=== PATIENT | male | born 1965 | race Caucasian/White ===

== ENCOUNTER 2021-02-18 14:06 | Emergency (ER) | payer MEDICARE ==
[~2021-02-18] VITALS: Ht 180.3 cm; Wt 226.8 kg
[2021-02-18] MEDS ORDERED: CASIRIVIMAB/IMDEVIMAB 10 ML in SODIUM CHLORIDE 0.9% 100 ML IV ONE (14:45)
[2021-02-18 16:34] VITALS: BP 137/62
== END 2021-02-18 16:35 | disposition home or self-care (01) ==
LOC: ER 14:45
DX: U07.1 COVID-19 (principal); I10 Essential (primary) hypertension; Z88.5 Allergy status to narcotic agent; Z91.013 Allergy to seafood; E66.01 Morbid (severe) obesity due to excess calories; Z68.44 Body mass index [BMI] 60.0-69.9, adult
CPT/HCPCS: 99282

== ENCOUNTER 2024-09-06 14:37 | Inpatient (IN) | payer MEDICARE ==
[~2024-09-06] VITALS: Ht 175.3 cm; Wt 222.3 kg
[2024-09-06 15:00] VITALS: TEMP 97.9
[2024-09-06 15:26] LABS: BASOPHILS % 0.1 % (0.0-1.0); HEMATOCRIT 47.3 % (38.2-49.6); HEMOGLOBIN 15.9 g/dL (14.0-18.0); LYMPHOCYTES # (AUTO) 0.7 (1.0-3.2); MEAN CORPUSCULAR HGB CONC 33.6 g/dL (31-35); MEAN CORPUSCULAR VOLUME 83.4 fL (81-99); MONOCYTES # (AUTO) 0.6 (0.2-0.8); MONOCYTES % 4.3 % (4.4-11.3); NEUTROPHILS # (AUTO) 13.3 (2.1-6.9); NEUTROPHILS % 90.1 % (38.7-80.0); PLATELET COUNT 233 x10e3/uL (140-360); RED BLOOD COUNT 5.67 x10e6/uL (4.3-5.7); RED CELL DISTRIBUTION WIDTH 13.5 % (11.7-14.4); WHITE BLOOD COUNT 14.72 x10e3/uL (4.8-10.8)
[2024-09-06 15:30] LABS: INR 1.09; PROTHROMBIN TIME 14.8 seconds (11.9-14.5)
[2024-09-06 15:39] LABS: ALBUMIN 3.3 g/dL (3.5-5.0); ALBUMIN/GLOBULIN RATIO 0.8 (0.8-2.0); ANION GAP 16.5 mmol/L (8-16); BILIRUBIN,TOTAL 2.4 mg/dL (0.2-1.2); CREATININE, SERUM 1.03 mg/dL (0.72-1.25); MAGNESIUM 1.6 MG/DL (1.3-2.1); POTASSIUM 3.5 mmol/L (3.5-5.1); TOTAL PROTEIN 7.2 g/dL (6.5-8.1)
[2024-09-06] MEDS: SODIUM CHLORIDE 0.9% 1000ML 1,000 ML IV STA (15:43)
[2024-09-06] MEDS: BUSPIRONE HCL 10 MG TABLET PO SCH (16:00)
[2024-09-06] MEDS: VANCOMYCIN 1.25GM/250 ML (PEG) 250 ML IV ONE (16:16)
[2024-09-06] MEDS: HYDROMORPHONE 2MG/ML IV PRN (16:18)
[2024-09-06] MEDS: ONDANSETRON HCL INJ 2MG/ML 2ML 2 MG/ML VIAL IV PRN (16:19)
[2024-09-06 17:30] VITALS: PULSE 58; RESP 16
[2024-09-06] MEDS: SODIUM CHLORIDE 0.9% 1000ML 1,000 ML IV SCH (18:35)
[2024-09-06] MEDS ORDERED: MONTELUKAST SOD10 MG PO (18:42)
[2024-09-06] MEDS ORDERED: FLUTICASONE PRO16 GM (18:42)
[2024-09-06] MEDS ORDERED: CYCLOBENZAPRINE10 MG PO (18:42)
[2024-09-06] MEDS ORDERED: BUSPIRONE HCL10 MG PO (18:42)
[2024-09-06] MEDS ORDERED: AMLODIPINE BESY10 MG PO (18:42)
[2024-09-06] MEDS ORDERED: METOPROLOL SUCC50 MG PO (18:42)
[2024-09-06] MEDS ORDERED: LISINOPRIL10 MG PO (18:43)
[2024-09-06 18:44] VITALS: BP 182/96; PULSE 72; RESP 20; TEMP 99.5; O2SAT 96
[2024-09-07] VITALS: BP 143/63; PULSE 68; RESP 20; TEMP 99.1; O2SAT 97
[2024-09-07 04:00] VITALS: BP 135/80; PULSE 72; RESP 21; TEMP 98.7; O2SAT 98
[2024-09-07] MEDS: VANCOMYCIN 1.25GM/250 ML (PEG) 250 ML IV SCH (04:47)
[2024-09-07] MEDS ORDERED: HYDROCORTISONE 1% CREAM 30 GM TUBE TOP PRN (06:30)
[2024-09-07 06:51] LABS: BASOPHILS % 0.3 % (0.0-1.0); EOSINOPHILS % 0.2 % (0.0-6.0); HEMATOCRIT 43.3 % (38.2-49.6); HEMOGLOBIN 14.2 g/dL (14.0-18.0); LYMPHOCYTES # (AUTO) 1.5 (1.0-3.2); LYMPHOCYTES % 15.2 % (18.0-39.1); MEAN CORPUSCULAR HEMOGLOBIN 28.2 pg (28-32); MEAN CORPUSCULAR HGB CONC 32.8 g/dL (31-35); MEAN CORPUSCULAR VOLUME 86.1 fL (81-99); MONOCYTES % 10.8 % (4.4-11.3); NEUTROPHILS # (AUTO) 7.1 (2.1-6.9); PLATELET COUNT 187 x10e3/uL (140-360); RED BLOOD COUNT 5.03 x10e6/uL (4.3-5.7); RED CELL DISTRIBUTION WIDTH 13.6 % (11.7-14.4); WHITE BLOOD COUNT 9.67 x10e3/uL (4.8-10.8)
[2024-09-07 07:29] LABS: ALBUMIN/GLOBULIN RATIO 0.9 (0.8-2.0); ANION GAP 13.4 mmol/L (8-16); BILIRUBIN,TOTAL 2.3 mg/dL (0.2-1.2); CALCIUM 8.3 mg/dL (8.4-10.2); CREATININE, SERUM 1.06 mg/dL (0.72-1.25); TOTAL PROTEIN 6.3 g/dL (6.5-8.1)
[2024-09-07 07:32] LABS: POTASSIUM 3.4 mmol/L (3.5-5.1)
[2024-09-07] MEDS: BUSPIRONE HCL 10 MG TABLET PO SCH ×2 (08:14→20:49)
[2024-09-07] MEDS: LISINOPRIL 10 MG TAB PO SCH (08:27)
[2024-09-07] MEDS: METOPROLOL SUCCINATE 50 MG TAB XL PO SCH (08:27)
[2024-09-07] MEDS: AMLODIPINE BESYLATE 10 MG TAB PO SCH (08:27)
[2024-09-07 09:17] VITALS: BP 145/80; PULSE 63; RESP 20; TEMP 98.6; O2SAT 99
[2024-09-07 09:25] VITALS: BP 145/80; PULSE 63; RESP 20; TEMP 98.6; O2SAT 99
[2024-09-07] MEDS: FLUTICASONE PROPIONATE NASAL SPRAY NS SCH (10:46)
[2024-09-07 18:50] VITALS: BP 164/75; PULSE 66; RESP 20; TEMP 99.2; O2SAT 96
[2024-09-07 20:00] VITALS: BP 133/119; PULSE 70; RESP 20; TEMP 99.7; O2SAT 93
[2024-09-07] MEDS: MONTELUKAST SODIUM 10 MG TAB PO SCH (20:49)
[2024-09-08] VITALS (7 sets, daily range): BP systolic 131–159; BP diastolic 63–85; PULSE 55–70; RESP 19–20; TEMP 98–99.3; O2SAT 96–100
[2024-09-08] MEDS: HYDROCORTISONE 1% CREAM 30 GM TUBE TOP SCH (06:59)
[2024-09-09] VITALS (8 sets, daily range): BP systolic 148–176; BP diastolic 62–91; PULSE 63–76; RESP 18–22; TEMP 98–98.9; O2SAT 96–100
[2024-09-10] VITALS (9 sets, daily range): BP systolic 140–179; BP diastolic 76–94; PULSE 66–74; RESP 18–20; TEMP 98.2–99.1; O2SAT 92–97
[2024-09-10 07:40] LABS: BASOPHILS # (AUTO) 0.1 (0.0-0.1); BASOPHILS % 0.9 % (0.0-1.0); EOSINOPHILS # (AUTO) 0.3 (0.0-0.4); EOSINOPHILS % 5.3 % (0.0-6.0); HEMATOCRIT 41.1 % (38.2-49.6); HEMOGLOBIN 13.7 g/dL (14.0-18.0); LYMPHOCYTES # (AUTO) 1.6 (1.0-3.2); LYMPHOCYTES % 30.3 % (18.0-39.1); MEAN CORPUSCULAR HEMOGLOBIN 28.3 pg (28-32); MEAN CORPUSCULAR HGB CONC 33.3 g/dL (31-35); MEAN CORPUSCULAR VOLUME 84.9 fL (81-99); MONOCYTES # (AUTO) 0.6 (0.2-0.8); MONOCYTES % 11.6 % (4.4-11.3); NEUTROPHILS # (AUTO) 2.7 (2.1-6.9); NEUTROPHILS % 51.7 % (38.7-80.0); PLATELET COUNT 196 x10e3/uL (140-360); RED BLOOD COUNT 4.84 x10e6/uL (4.3-5.7); RED CELL DISTRIBUTION WIDTH 13.2 % (11.7-14.4); WHITE BLOOD COUNT 5.28 x10e3/uL (4.8-10.8)
[2024-09-10 08:13] LABS: ALBUMIN 2.5 g/dL (3.5-5.0); ALBUMIN/GLOBULIN RATIO 0.7 (0.8-2.0); ANION GAP 12.3 mmol/L (8-16); BILIRUBIN,TOTAL 1.5 mg/dL (0.2-1.2); CALCIUM 8.4 mg/dL (8.4-10.2); CREATININE, SERUM 0.86 mg/dL (0.72-1.25); TOTAL PROTEIN 6.1 g/dL (6.5-8.1)
[2024-09-10 08:18] LABS: POTASSIUM 3.3 mmol/L (3.5-5.1)
[2024-09-10] MEDS: POTASSIUM CHLORIDE 10MEQ EA PO ONE (15:16)
[2024-09-11] VITALS (7 sets, daily range): BP systolic 145–178; BP diastolic 69–86; PULSE 61–69; RESP 18–20; TEMP 97.6–98.8; O2SAT 96–100
[2024-09-11] MEDS: HYDROMORPHONE HCL 2 MG TAB PO PRN (13:05)
[2024-09-12 03:17] VITALS: BP 168/88; PULSE 61; RESP 18; TEMP 98.3; O2SAT 97
[2024-09-12] MEDS ORDERED: DOXYCYCLINE HY100 MG PO (21:14)
== END 2024-09-12 09:37 | disposition home or self-care (01) | DRG 603 ==
LOC: ER 15:15 → ERHOLD 16:58 → MED/SURG3 18:29
PROVIDERS: ADMIT Internal Medicine; ATTEND Internal Medicine
DX: L03.116 Cellulitis of left lower limb (principal); Z68.45 Body mass index [BMI] 70 or greater, adult; E66.01 Morbid (severe) obesity due to excess calories; E11.621 Type 2 diabetes mellitus with foot ulcer; E11.51 Type 2 diabetes mellitus with diabetic peripheral angiopathy without gangrene; Z79.84 Long term (current) use of oral hypoglycemic drugs; L97.529 Non-pressure chronic ulcer of other part of left foot with unspecified severity; I89.0 Lymphedema, not elsewhere classified; I87.8 Other specified disorders of veins; E87.6 Hypokalemia; I10 Essential (primary) hypertension; S90.111A Contusion of right great toe without damage to nail, initial encounter; X58.XXXA Exposure to other specified factors, initial encounter; F31.9 Bipolar disorder, unspecified; F41.9 Anxiety disorder, unspecified; Z91.013 Allergy to seafood; Z88.5 Allergy status to narcotic agent
CPT/HCPCS: 36415; 71045; 80053; 80202; 83735; 85025; 85610; 85730; 87040; 93005; 93971; 99252; 99285; J1171; J2405; J2543; J7030

== ENCOUNTER 2024-10-24 12:32 | Inpatient (IN) | payer MEDICARE ==
[~2024-10-24] VITALS: Ht 175.3 cm; Wt 222.3 kg
[~2024-10-24 12:32] MED LIST: AMLODIPINE BESY10 MG PO; BUSPIRONE HCL10 MG PO; CYCLOBENZAPRINE10 MG PO; DOXYCYCLINE HY100 MG PO; FLUTICASONE PRO16 GM; LISINOPRIL10 MG PO; METOPROLOL SUCC50 MG PO; MONTELUKAST SOD10 MG PO
[2024-10-24 13:46] LABS: BASOPHILS # (AUTO) 0.1 (0.0-0.1); BASOPHILS % 0.4 % (0.0-1.0); EOSINOPHILS % 0.1 % (0.0-6.0); HEMATOCRIT 48.1 % (38.2-49.6); HEMOGLOBIN 16.3 g/dL (14.0-18.0); LYMPHOCYTES # (AUTO) 0.9 (1.0-3.2); LYMPHOCYTES % 6.6 % (18.0-39.1); MEAN CORPUSCULAR HEMOGLOBIN 28.4 pg (28-32); MEAN CORPUSCULAR HGB CONC 33.9 g/dL (31-35); MEAN CORPUSCULAR VOLUME 83.8 fL (81-99); MONOCYTES # (AUTO) 0.7 (0.2-0.8); MONOCYTES % 5.3 % (4.4-11.3); NEUTROPHILS # (AUTO) 11.6 (2.1-6.9); NEUTROPHILS % 87.3 % (38.7-80.0); PLATELET COUNT 231 x10e3/uL (140-360); RED BLOOD COUNT 5.74 x10e6/uL (4.3-5.7); RED CELL DISTRIBUTION WIDTH 14.1 % (11.7-14.4); WHITE BLOOD COUNT 13.32 x10e3/uL (4.8-10.8)
[2024-10-24 13:51] LABS: INR 1.14; PROTHROMBIN TIME 15.3 seconds (11.9-14.5)
[2024-10-24 13:59] LABS: ALBUMIN 3.4 g/dL (3.5-5.0); ALBUMIN/GLOBULIN RATIO 0.9 (0.8-2.0); ANION GAP 16.5 mmol/L (8-16); BILIRUBIN,TOTAL 1.8 mg/dL (0.2-1.2); CALCIUM 8.8 mg/dL (8.4-10.2); CREATININE, SERUM 1.17 mg/dL (0.72-1.25); POTASSIUM 3.5 mmol/L (3.5-5.1); TOTAL PROTEIN 7.4 g/dL (6.5-8.1)
[2024-10-24 14:28] LABS: CORONAVIRUS COVID-19 AG NEGATIVE (NEGATIVE); INFLUENZA A AG NEGATIVE (NEGATIVE); INFLUENZA B AG NEGATIVE (NEGATIVE)
[2024-10-24] MEDS: ONDANSETRON HCL INJ 2MG/ML 2ML 2 MG/ML VIAL IV STA (15:11)
[2024-10-24] MEDS: VANCOMYCIN HCL 1.25 GM in SODIUM CHLORIDE 0.9% 250ML 250 ML IV SCH (15:11)
[2024-10-24] MEDS: ACETAMINOPHEN 325 MG TAB PO ONE (15:11)
[2024-10-24] MEDS: HYDROMORPHONE 1MG/1ML INJ IV STA (17:06)
[2024-10-24] MEDS: SODIUM CHLORIDE 0.9% 1000ML 1,000 ML IV SCH (17:07)
[2024-10-24 19:34] VITALS: PULSE 64; RESP 17; TEMP 98.7
[2024-10-24 20:55] VITALS: BP 214/203; PULSE 67; RESP 20; TEMP 99.3; O2SAT 97
[2024-10-24 21:30] VITALS: BP 214/203; PULSE 67; RESP 20; TEMP 99.3; O2SAT 97
[2024-10-24] MEDS: ONDANSETRON HCL INJ 2MG/ML 2ML 2 MG/ML VIAL IV PRN (22:42)
[2024-10-24] MEDS: HYDROMORPHONE 1MG/1ML INJ IV PRN (22:43)
[2024-10-25] VITALS (8 sets, daily range): BP systolic 140–201; BP diastolic 60–105; PULSE 64–82; RESP 18–20; TEMP 97.9–100.4; O2SAT 94–98
[2024-10-25] MEDS: VANCOMYCIN HCL 1.25 GM in SODIUM CHLORIDE 0.9% 250ML 250 ML IV SCH (04:46)
[2024-10-25 06:30] LABS: BASOPHILS % 0.3 % (0.0-1.0); EOSINOPHILS % 0.1 % (0.0-6.0); HEMATOCRIT 43.8 % (38.2-49.6); HEMOGLOBIN 14.3 g/dL (14.0-18.0); LYMPHOCYTES # (AUTO) 0.9 (1.0-3.2); LYMPHOCYTES % 11.1 % (18.0-39.1); MEAN CORPUSCULAR HGB CONC 32.6 g/dL (31-35); MEAN CORPUSCULAR VOLUME 85.9 fL (81-99); MONOCYTES # (AUTO) 0.6 (0.2-0.8); NEUTROPHILS # (AUTO) 6.2 (2.1-6.9); NEUTROPHILS % 80.1 % (38.7-80.0); PLATELET COUNT 177 x10e3/uL (140-360); RED CELL DISTRIBUTION WIDTH 14.3 % (11.7-14.4); WHITE BLOOD COUNT 7.77 x10e3/uL (4.8-10.8)
[2024-10-25 06:57] LABS: ALBUMIN 2.7 g/dL (3.5-5.0); ALBUMIN/GLOBULIN RATIO 0.8 (0.8-2.0); ANION GAP 15.8 mmol/L (8-16); BILIRUBIN,TOTAL 1.2 mg/dL (0.2-1.2); CALCIUM 8.4 mg/dL (8.4-10.2); CREATININE, SERUM 1.05 mg/dL (0.72-1.25); POTASSIUM 3.8 mmol/L (3.5-5.1); TOTAL PROTEIN 6.3 g/dL (6.5-8.1)
[2024-10-25] MEDS: CYCLOBENZAPRINE HCL 10 MG TAB PO SCH (08:18)
[2024-10-25] MEDS: BUSPIRONE HCL 10 MG TABLET PO SCH (08:18)
[2024-10-25] MEDS: AMLODIPINE BESYLATE 10 MG TAB PO SCH (08:19)
[2024-10-25] MEDS: METOPROLOL SUCCINATE 50 MG TAB XL PO SCH (08:19)
[2024-10-25] MEDS: LISINOPRIL 10 MG TAB PO SCH (08:20)
[2024-10-25] MEDS: ACETAMINOPHEN 325 MG TAB PO PRN (18:20)
[2024-10-25] MEDS: ENOXAPARIN SOD INJ 40 MG/0.4 ML SYR SC SCH (21:00)
[2024-10-25] MEDS: ZOLPIDEM TARTRATE 5 MG TAB PO PRN (21:56)
[2024-10-26] VITALS (7 sets, daily range): BP systolic 115–166; BP diastolic 72–87; PULSE 60–70; RESP 18–20; TEMP 97.2–99.2; O2SAT 95–100
[2024-10-26] MEDS: HYDROCODONE/APAP 5MG-325MG TAB PO PRN (00:32)
[2024-10-27] VITALS (8 sets, daily range): BP systolic 137–160; BP diastolic 69–104; PULSE 65–71; RESP 17–20; TEMP 97.3–98.6; O2SAT 96–99
[2024-10-27 05:47] LABS: BASOPHILS % 0.8 % (0.0-1.0); EOSINOPHILS # (AUTO) 0.1 (0.0-0.4); EOSINOPHILS % 2.8 % (0.0-6.0); HEMATOCRIT 41.6 % (38.2-49.6); LYMPHOCYTES # (AUTO) 1.6 (1.0-3.2); LYMPHOCYTES % 33.2 % (18.0-39.1); MEAN CORPUSCULAR HEMOGLOBIN 28.2 pg (28-32); MEAN CORPUSCULAR HGB CONC 33.7 g/dL (31-35); MEAN CORPUSCULAR VOLUME 83.9 fL (81-99); MONOCYTES # (AUTO) 0.7 (0.2-0.8); MONOCYTES % 13.4 % (4.4-11.3); NEUTROPHILS # (AUTO) 2.5 (2.1-6.9); NEUTROPHILS % 49.6 % (38.7-80.0); PLATELET COUNT 165 x10e3/uL (140-360); RED BLOOD COUNT 4.96 x10e6/uL (4.3-5.7); RED CELL DISTRIBUTION WIDTH 13.8 % (11.7-14.4); WHITE BLOOD COUNT 4.94 x10e3/uL (4.8-10.8)
[2024-10-27 06:21] LABS: ALBUMIN 2.6 g/dL (3.5-5.0); ALBUMIN/GLOBULIN RATIO 0.8 (0.8-2.0); ANION GAP 15.1 mmol/L (8-16); BILIRUBIN,TOTAL 0.8 mg/dL (0.2-1.2); CALCIUM 8.2 mg/dL (8.4-10.2); CREATININE, SERUM 0.88 mg/dL (0.72-1.25); TOTAL PROTEIN 5.9 g/dL (6.5-8.1)
[2024-10-27 06:23] LABS: POTASSIUM 3.1 mmol/L (3.5-5.1)
[2024-10-28] VITALS (8 sets, daily range): BP systolic 134–182; BP diastolic 72–88; PULSE 65–84; RESP 18–20; TEMP 97.5–98.2; O2SAT 95–100
[2024-10-28] MEDS: POTASSIUM CHLORIDE 20 MEQ TAB CR PO STA (05:59)
[2024-10-29] VITALS (8 sets, daily range): BP systolic 109–182; BP diastolic 61–88; PULSE 64–73; RESP 17–20; TEMP 97.3–98.1; O2SAT 96–100
[2024-10-29] MEDS ORDERED: Vancomycin IV 1 GM in SODIUM CHLORIDE 0.9% 250ML 250 ML IV SCH (16:45)
[2024-10-30] VITALS (7 sets, daily range): BP systolic 143–189; BP diastolic 65–89; PULSE 61–72; RESP 14–20; TEMP 97.5–98.2; O2SAT 95–99
[2024-10-30] MEDS ORDERED: Vancomycin IV 1 GM in SODIUM CHLORIDE 0.9% 250ML 250 ML IV SCH (15:00)
[2024-10-30] MEDS: Vancomycin IV 1 GM in SODIUM CHLORIDE 0.9% 250ML 250 ML IV SCH (16:19)
[2024-10-30] MEDS: HYDROMORPHONE 2MG/ML IV PRN (17:09)
[2024-10-31] VITALS: BP 151/68; PULSE 61; RESP 20; TEMP 97.2; O2SAT 94
[2024-10-31 05:50] VITALS: BP 167/75; PULSE 67; RESP 18; TEMP 97.9; O2SAT 95
[2024-10-31 08:00] VITALS: BP 206/97; PULSE 99; RESP 21; TEMP 98.2; O2SAT 97
[2024-10-31] MEDS: HYDRALAZINE HCL 20 MG/ML VIAL IV PRN (09:20)
[2024-10-31 12:00] VITALS: BP 132/57; PULSE 73; RESP 20; TEMP 98.2; O2SAT 100
[2024-10-31 16:00] VITALS: BP 186/92; PULSE 70; RESP 20; TEMP 98.5; O2SAT 99
[2024-10-31 20:00] VITALS: BP 205/90; PULSE 74; RESP 20; TEMP 98.2; O2SAT 97
[2024-11-01 00:05] VITALS: BP 177/87; PULSE 85; RESP 20; TEMP 98.2; O2SAT 95
[2024-11-01 03:56] VITALS: BP 173/81; PULSE 86; RESP 18; TEMP 98.5; O2SAT 94
[2024-11-01 08:00] VITALS: BP 161/92; PULSE 86; RESP 20; TEMP 98.6; O2SAT 97
[2024-11-01 08:46] VITALS: BP 161/92; PULSE 86; RESP 20; TEMP 98.6; O2SAT 97
[2024-11-01 12:32] VITALS: BP 166/87; PULSE 78; RESP 20; TEMP 98.9; O2SAT 96
== END 2024-11-01 12:59 | disposition home or self-care (01) | DRG 603 ==
LOC: ER 13:35 → ERHOLD 16:56 → MED/SURG2 20:08
PROVIDERS: ADMIT Internal Medicine; ATTEND Internal Medicine
PROC: 05HB33Z Insertion of Infusion Device into Right Basilic Vein, Percutaneous Approach (ICD-10-PCS; principal; 2024-10-26)
DX: L03.116 Cellulitis of left lower limb (principal); Z68.45 Body mass index [BMI] 70 or greater, adult; E66.01 Morbid (severe) obesity due to excess calories; Z71.3 Dietary counseling and surveillance; I10 Essential (primary) hypertension; I45.10 Unspecified right bundle-branch block; F41.9 Anxiety disorder, unspecified; G47.00 Insomnia, unspecified; R53.81 Other malaise; I89.0 Lymphedema, not elsewhere classified; E87.6 Hypokalemia; I87.2 Venous insufficiency (chronic) (peripheral); G43.909 Migraine, unspecified, not intractable, without status migrainosus; K21.9 Gastro-esophageal reflux disease without esophagitis; R05.3 Chronic cough; U09.9 Post COVID-19 condition, unspecified; Z11.52 Encounter for screening for COVID-19; Z86.718 Personal history of other venous thrombosis and embolism; Z79.899 Other long term (current) drug therapy; Z91.013 Allergy to seafood; Z88.2 Allergy status to sulfonamides; Z88.8 Allergy status to other drugs, medicaments and biological substances; Z88.5 Allergy status to narcotic agent
CPT/HCPCS: 36415; 71045; 80053; 80202; 83735; 84484; 85025; 85610; 85730; 87040; 93971; 99252; 99284; J0360; J1171; J1650; J2405; J2543; J7030; J7050